=== PATIENT | female | born 1935 | race Caucasian/White ===

== ENCOUNTER 2017-02-13 10:04 | Outpatient (CLI) | payer MEDICARE, OTHER ==
[2017-02-13 11:03] LABS: eGFR (African) > 60; eGFR (Non-African) > 60
== END 2017-02-13 10:05 ==
LOC: LAB 10:04
PROVIDERS: ATTEND Family Medicine
DX: E78.5 Hyperlipidemia, unspecified (principal); I10 Essential (primary) hypertension
CPT/HCPCS: 36415; 80053; 80061

== ENCOUNTER 2017-06-19 09:47 | Outpatient (CLI) | payer MEDICARE, OTHER ==
[2017-06-19 10:35] LABS: eGFR (African) > 60; eGFR (Non-African) > 60
== END 2017-06-19 09:50 ==
LOC: LAB 09:47
PROVIDERS: ATTEND Family Medicine
DX: E78.5 Hyperlipidemia, unspecified (principal)
CPT/HCPCS: 36415; 80053; 80061

== ENCOUNTER 2017-11-28 10:41 | Outpatient (CLI) | payer MEDICARE, OTHER ==
[2017-11-28 11:53] LABS: eGFR (African) > 60; eGFR (Non-African) > 60
== END 2017-11-28 10:42 ==
LOC: LAB 10:41
PROVIDERS: ATTEND Family Medicine
DX: E78.5 Hyperlipidemia, unspecified (principal); I10 Essential (primary) hypertension
CPT/HCPCS: 36415; 80053; 80061

== ENCOUNTER 2017-12-02 10:46 | Outpatient (CLI) | payer MEDICARE, OTHER | END 2017-12-02 10:47 | LOC: RAD 10:46 | PROVIDERS: ATTEND Family Medicine | DX: M81.0 Age-related osteoporosis without current pathological fracture (principal) | CPT/HCPCS: 77080 ==

== ENCOUNTER 2018-03-31 09:45 | Outpatient (CLI) | payer MEDICARE, OTHER | END 2018-03-31 09:46 | LOC: LAB 09:45 | PROVIDERS: ATTEND Family Medicine | DX: I10 Essential (primary) hypertension (principal) | CPT/HCPCS: 36415; 80053; 80061 ==

== ENCOUNTER 2019-04-28 09:51 | Outpatient (CLI) | payer MEDICARE, OTHER ==
[2019-04-28 11:03] LABS: HDL 43 mg/dL (>40); eGFR (Non-African) > 60
== END 2019-04-28 09:54 ==
LOC: LAB 09:51
PROVIDERS: ATTEND Family Medicine
DX: I10 Essential (primary) hypertension (principal); E78.5 Hyperlipidemia, unspecified
CPT/HCPCS: 36415; 80053; 80061